=== PATIENT | male | born 1945 | race Caucasian/White ===

== ENCOUNTER 2019-01-18 23:25 | Inpatient (IN) | payer MEDICARE, OTHER ==
[~2019-01-18] VITALS: Ht 177.8 cm; Wt 88.5 kg
--- NOTE | 2019-01-18 23:30 | NUR ---
ED Nurse Note: Pt walked in c/o loss of appitate since 01/14 with n/v/d. Mid abd pain, 5/10 pain. Per son, pt has been heavy drinking for the past month. Stopped 01/16. patient is alert and oriented x4, ambulatory with a steady gait, VSS. patient presents with a busted front lip howeve has no recollection on when or how it happened, will wait for further orders
--- NOTE | 2019-01-18 23:56 | Emergency Room Report ---
History of Present Illness General Chief Complaint: Nausea, Vomiting, and Diarrhea Source: Family Member Present Illness HPI Patient presents unable to keep anything down with nausea and vomiting. He also has a slight amount of abdominal discomfort. He feels heaviness in his legs 2 days ago when he was trying to move about. He is been weak. He drinks alcohol daily and is been many years since he was last sober. Progressively deteriorated over the last 2 months. Denies any melena or hematochezia. Easy bruising. 3 months ago the patient was able to assist with coaching his grandchildren's a little leak. Now he is unable to throw ball he has a weakness. The son says the right eye is chronically red. He has a lesion on his upper lip that is been there for months. This is not been evaluated. The patient has chronic lymphocytic leukemia. He states he has not had follow- up for several years. Allergies: Coded Allergies: No Known Allergies (Unverified , 01/18/19) Patient History Past Medical History: see triage record Past Surgical History: other - Hip replacements Social History: Reports: alcohol use; Denies: smoking Social History Narrative Brought by son Reviewed Nursing Documentation: PMH: Agreed; PSxH: Agreed Review of Systems All Other Systems: negative except mentioned in HPI Physical Exam Vital Signs Date Time Temp Pulse Resp B/P (MAP) Pulse Ox O2 Delivery O2 Flow Rate FiO2 01/18/19 23:30 98.1 89 18 147/84 (105) 94 Room Air Sp02 EP Interpretation: reviewed, abnormal - Interpreted as slightly low by me General Appearance: alert, Chronically Ill Head: normocephalic, atraumatic Eyes: right eye Scleral Injection; bilateral eye EOMI ENT: dry mucus membranes, other - Lesion upper lip Neck: supple, no bony tend Respiratory: chest non-tender, lungs clear, other - Occasional rhonchorous cough Cardiovascular #1: normal peripheral pulses, tachycardia Cardiovascular #2: 2+ radial (R) Gastrointestinal: normal bowel sounds, non tender, soft, no mass Genitourinary: no CVA tenderness Musculoskeletal: back normal, digits/nails normal Neurologic: alert, motor strength/tone normal, DTRs symmetric, sensory intact, cerebellar normal, oriented - X2 Psychiatric: mood/affect normal, no suicidal/homicidal ideation, no delusions Skin: Ecchymosis/Bruising - Forearms Medical Decision Making Diagnostic Impression: Primary Impression: Intractable vomiting Qualified Codes: R11.2 - Nausea with vomiting, unspecified Additional Impressions: Alcohol withdrawal Qualified Codes: F10.239 - Alcohol dependence with withdrawal, unspecified Chronic lymphocytic leukemia Suspicious upper lip lesion for neoplastic process ER Course Patient presents with vomiting and weakness with a history of alcohol abuse. Differential includes acute myocardial infarction, occult infection, small bowel obstruction, gastritis, gastroenteritis, diverticulitis, UTI amongst others. Evaluation will be with EKG, chest x-ray, abdominal films and labs. The patient will be treated with IV hydration, thiamine, Pepcid and Zofran. EKG with sinus tachycardia and PACs with LVH and nonspecific ST-T wave changes. Chest x-ray no infiltrates. Abdomen increased stool load and evidence of hip surgeries without obstruction. Labs with markedly elevated white count consistent with CLL. Platelet count normal. INR normal. Elevated BUN. Patient somewhat improved but still weak. Difficulty tolerating oral intake at this time. Risk of severe withdrawal from alcohol. Also with leukocytosis needs further evaluation. Admit telemetry Dr. Mcneil. Laboratory Tests Test 01/18/19 23:55 01/19/19 00:00 Urine Color Yellow Urine Appearance Clear Urine pH 5 (4.5-8.0) Urine Specific [place] 1.020 (1.005-1.035) Urine Protein 1+ (NEGATIVE) H Urine Glucose (UA) Negative (NEGATIVE) Urine Ketones 1+ (NEGATIVE) H Urine Blood 1+ (NEGATIVE) H Urine Nitrite Negative (NEGATIVE) Urine Bilirubin Negative (NEGATIVE) Urine Urobilinogen 1 MG/DL (0.0-1.0) H Urine Leukocyte Esterase 1+ (NEGATIVE) H Urine RBC 0-2 /HPF (0 - 0) H Urine WBC 0-2 /HPF (0 - 0) Urine Squamous Epithelial Cells None /LPF (NONE/OCC) Urine Bacteria Few /HPF (NONE) Urine Opiates Screen Negative (NEGATIVE) Urine Barbiturates Screen Negative (NEGATIVE) Phencyclidine (PCP) Screen Negative (NEGATIVE) Urine Amphetamines Screen Negative (NEGATIVE) Urine Benzodiazepines Screen Negative (NEGATIVE) Urine Cocaine Screen Negative (NEGATIVE) Urine Marijuana (THC) Screen Negative (NEGATIVE) White Blood Count 169.2 K/UL (4.8-10.8) *H Red Blood Count 3.33 M/UL (4.70-6.10) L Hemoglobin 11.6 G/DL (14.2-18.0) L Hematocrit 33.9 % (42.0-52.0) L Mean Corpuscular Volume 102 FL (80-99) H Mean Corpuscular Hemoglobin 34.7 PG (27.0-31.0) H Mean Corpuscular Hemoglobin Concent 34.0 G/DL (32.0-36.0) Red Cell Distribution Width 14.1 % (11.6-14.8) Platelet Count 188 K/UL (150-450) Mean Platelet Volume 6.3 FL (6.5-10.1) L Neutrophils (%) (Auto) % (45.0-75.0) Lymphocytes (%) (Auto) % (20.0-45.0) Monocytes (%) (Auto) % (1.0-10.0) Eosinophils (%) (Auto) % (0.0-3.0) Basophils (%) (Auto) % (0.0-2.0) Neutrophils % (Manual) Pending Lymphocytes % (Manual) Pending Platelet Estimate Pending Platelet Morphology Pending Prothrombin Time 10.2 SEC (9.30-11.50) Prothrombin Time INR 1.0 (0.9-1.1) PTT 28 SEC (23-33) Sodium Level 136 MMOL/L (136-145) Potassium Level 3.5 MMOL/L (3.5-5.1) Chloride Level 99 MMOL/L (98-107) Carbon Dioxide Level 25 MMOL/L (21-32) Anion Gap 12 mmol/L (5-15) Blood Urea Nitrogen 19 mg/dL (7-18) H Creatinine 1.3 MG/DL (0.55-1.30) Estimate Glomerular Filtration Rate mL/min (>60) Glucose Level 132 MG/DL (74-106) H Calcium Level 8.9 MG/DL (8.5-10.1) Phosphorus Level 3.1 MG/DL (2.5-4.9) Magnesium Level 2.1 MG/DL (1.8-2.4) Total Bilirubin 1.6 MG/DL (0.2-1.0) H Direct Bilirubin 0.4 MG/DL (0.0-0.3) H Aspartate Amino Transferase (AST) 27 U/L (15-37) Alanine Aminotransferase (ALT) 42 U/L (12-78) Alkaline Phosphatase 127 U/L (46-116) H Total Creatine Kinase 40 U/L (26-308) Troponin I 0.000 ng/mL (0.000-0.056) Total Protein 6.6 G/DL (6.4-8.2) Albumin 3.7 G/DL (3.4-5.0) Globulin 2.9 g/dL Albumin/Globulin Ratio 1.3 (1.0-2.7) Lipase 144 U/L (73-393) Salicylates Level 1.8 ug/mL (2.8-20) L Acetaminophen Level < 2 MCG/ML (10-30) L Serum Alcohol < 3 mg/dL Rhythm Strip Diag. Results EP Interpretation: yes Rhythm: NSR, no PVC's, no ectopy Chest X-Ray Diagnostic Results Chest X-Ray Diagnostic Results : Chest X-Ray Ordered: Yes # of Views/Limited/Complete: 1 View Indication: Other EP Interpretation: Yes Interpretation: no consolidation, no effusion, no pneumothorax Impression: No acute disease Electronically Signed by: Electronically signed by Ernesto Moore MD Other X-Ray Diagnostic Results Other X-Ray Diagnostic Results : X-Ray ordered: Abdomen # of Views/Limited Vs Complete: 1 View Indication: Other EP Interpretation: Yes Interpretation: nonspecific bowel gas, no sbo, other - No masses Impression: No acute disease Electronically Signed by: Electronically signed by Ernesto Moore MD Last Vital Signs Date Time Temp Pulse Resp B/P (MAP) Pulse Ox O2 Delivery O2 Flow Rate FiO2 01/19/19 04:00 99.9 73 20 114/70 (85) 97 01/19/19 03:04 Room Air Status: improved Disposition: ADMITTED INPATIENT Condition: Serious Ernesto Moore MD Jan 18, 2019 23:56
[2019-01-19] VITALS (7 sets, daily range): BP systolic 114–140; BP diastolic 58–93
[2019-01-19] MEDS ORDERED: Thiamine HCl 100 MG in D5W 55 ML IV ONE ×2
--- NOTE | 2019-01-19 00:13 | NUR ---
ED Nurse Note: Patient complains of no pain at this time, will wait for further orders
[2019-01-19 00:32] LABS: HEMATOCRIT 33.9 % (42.0-52.0); HEMOGLOBIN 11.6 G/DL (14.2-18.0); MEAN CORPUSCULAR VOLUME 102 FL (80-99); PLATELET COUNT 188 K/UL (150-450); RED BLOOD COUNT 3.33 M/UL (4.70-6.10); RED CELL DISTRIBUTION WIDTH 14.1 % (11.6-14.8)
[2019-01-19 00:49] LABS: PHOSPHORUS 3.1 MG/DL (2.5-4.9); WHITE BLOOD COUNT 169.2 K/UL (4.8-10.8)
[2019-01-19 01:03] LABS: ANION GAP 12 mmol/L (5-15); BLOOD UREA NITROGEN 19 mg/dL (7-18); CALCIUM 8.9 MG/DL (8.5-10.1); CARBON DIOXIDE 25 MMOL/L (21-32); CHLORIDE 99 MMOL/L (98-107); CREATININE 1.3 MG/DL (0.55-1.30); POTASSIUM 3.5 MMOL/L (3.5-5.1); SODIUM 136 MMOL/L (136-145)
[2019-01-19 01:14] LABS: ALANINE AMINOTRANSFERASE 42 U/L (12-78); ALBUMIN 3.7 G/DL (3.4-5.0); ALBUMIN/GLOBULIN RATIO 1.3 (1.0-2.7); ALKALINE PHOSPHATASE 127 U/L (46-116); ASPARTATE AMINO TRANSFERASE 27 U/L (15-37); BILIRUBIN,TOTAL 1.6 MG/DL (0.2-1.0); CREATINE KINASE 40 U/L (26-308)
[2019-01-19 01:26] LABS: BILIRUBIN,DIRECT 0.4 MG/DL (0.0-0.3)
[2019-01-19 01:36] LABS: APPEARANCE,URINE CLEAR; BILIRUBIN, URINE NEGATIVE (NEGATIVE); GLUCOSE, URINE (UA) NEGATIVE (NEGATIVE); KETONES,URINE 1+ (NEGATIVE); LEUKOCYTE ESTERASE ,URINE 1+ (NEGATIVE); NITRITE,URINE NEGATIVE (NEGATIVE); PH,URINE 5 (4.5-8.0); PROTEIN,URINE 1+ (NEGATIVE); UROBILINOGEN,URINE 1 MG/DL (0.0-1.0)
[2019-01-19 01:54] LABS: COLOR,URINE YELLOW
[2019-01-19] MEDS ORDERED: Morphine Sulfate 2mg/ml Inj(IV/IM USE ONLY) IVP PRN (02:15)
--- NOTE | 2019-01-19 02:15 | NUR ---
TRANSFER TO FLOOR: Patient transferred to Telemetry as ordered, per Dr. Gillis. Report given to HANNAH Alamo
--- NOTE | 2019-01-19 02:30 | NUR ---
NURSE NOTES: Received report from HANNAH Jarrell ED. Patient was transferred from ED to Telemetry unit via gurney without any incident. Patient is awake, A/O x4, lying in semi wright's; denies pain at this time. No signs of acute cardiorespiratory distress noted. Checked IV site and flushed with ongoing IV NS 1L @300cc/hr. Patient was placed on tele box SR on the monitor, 80s. Body assessment done with no skin issues. Bed at lowest position, brakes on, siderails x2. Call light within reach. Will continue to monitor. Addendum: 01/19/19 at 0755 by Cally Calderon RN Body assessment done. Lesion noted at the upper lip. Multiple bruises noted at bilateral upper extremities.
[2019-01-19] MEDS: D5 1/2NS 1,000 ML IV SCH ×3 (03:23→23:06)
[2019-01-19] MEDS: Zolpidem 5mg tab ORAL PRN ×2 (03:24→21:20)
--- NOTE | 2019-01-19 04:30 | NUR ---
NURSE NOTES: Resting throughout the night. No significant change of condition. Will continue to monitor.
--- NOTE | 2019-01-19 07:40 | NUR ---
NURSE NOTES: Report received from HANNAH Alamo. Pt. AOx4. In RA. Denies any pain or SOB. R AC IV running D5 1/2 NS @ 100, site intact. Bed on lowest position, side rails upx2, brakes engaged, call light within easy reach.
--- NOTE | 2019-01-19 07:55 | NUR ---
HAND-OFF: Report given to HANNAH Mack. Patient is in stable condition. Plan of care endorsed.
--- NOTE | 2019-01-19 08:30 | History and Physical Report ---
DATE OF ADMISSION: 01/19/2019 REASON FOR ADMISSION: Nausea and vomiting. HISTORY OF PRESENT ILLNESS: The patient is a extremely pleasant 73-year-old gentleman admitted overnight for evaluation and care of nausea and vomiting. No diarrhea. No chest pain. No shortness of breath. Denies any changes in bowel color or consistency. The patient does drink approximately 6 to 7 bottles of Chardonnay a day. He says there are the smaller size Chardonnay bottles of wine. Denies any vodka. Denies any other alcohol consumption. He is being treated by an oncologist in [facility] for CLL. ALLERGIES: No known drug allergies. PAST MEDICAL HISTORY: 1. CLL. 2. Alcohol dependency. SOCIAL HISTORY: Positive for heavy alcohol consumption. No tobacco or illicit drug use. PAST SURGICAL HISTORY: Hip replacements. REVIEW OF SYSTEMS: NEUROLOGIC: The patient denies headache, change in vision, syncope, or presyncopal episodes. CARDIOVASCULAR: No current chest pain, palpitations, or angina. PULMONARY: No difficulty breathing, productive cough, sputum. GASTROINTESTINAL/GENITOURINARY: The patient is having nausea and vomiting but no diarrhea. ENDOCRINOLOGY: No night sweats, fevers, or chills. MUSCULOSKELETAL: The patient is feeling weak, tired, and fatigue LABORATORY AND DIAGNOSTIC DATA: Labs dated January 19, 2019, sodium 136, potassium 3.5, creatinine 1.3. Troponin 0. Lipase 144. Albumin 3.7. White cell count , hemoglobin 11.6, and platelet count 188. PHYSICAL EXAMINATION: VITAL SIGNS: Blood pressure 114/70, respiratory rate 20, pulse 73, temperature 99.9, 97% oxygen saturation room air. GENERAL: The patient awake, alert, not in distress. HEENT: Extraocular muscles intact. NECK: No lymphadenopathy noted. CARDIOVASCULAR: S1 and S2. No rubs or gallops. PULMONARY: Clear to auscultation bilaterally. No rales, rhonchi, or wheezes. ABDOMEN: Nondistended and nontender. EXTREMITIES: No edema noted. ASSESSMENT AND PLAN: 1. Nausea and vomiting secondary to heavy alcohol consumption. We will aggressively hydrate the patient. Consult Gastroenterology for other etiologies. Anticipate discharge tomorrow once the patient tolerating p.o. The patient agreed to initiate alcohol abstinence. 2. CLL. The patient to follow up with his oncologist in [facility] post discharge. 3. DVT prophylaxis with Lovenox. 4. GI prophylaxis with famotidine. 5. Dehydration. We will continue IV fluids. Ozzy Gillis MD DR: Joanie JOB#: [id number] CC:
[2019-01-19] MEDS: Heparin 5000 units/ml inj SUBQ SCH ×3 (09:00→20:57)
[2019-01-19] MEDS ORDERED: Enoxaparin 40mg Inj SUBQ SCH (09:00)
[2019-01-19] MEDS: Thiamine 100mg tab ORAL SCH (09:22)
--- NOTE | 2019-01-19 10:32 | NUR ---
*-* INSURANCE *-* ALL AVAILABLE CLINICALS HAVE BEEN FAXED TO: [facility] #[phone] FAX#[phone] REVIEWS/CLINICALS Addendum: 01/19/19 at 1353 by ANDI CERDA [facility]: [place] Wang; [phone] F: [phone] REF# [id number]
--- NOTE | 2019-01-19 10:50 | Diagnostic Imaging Report ---
Indication: Abdominal pain Comparison: None Single view of the abdomen obtained Findings: There are dilated loops of small bowel and probable large bowel as well. Recommend follow-up. Consider CT if warranted clinically. Current study is obtained is limited. IMPRESSION: Mild distention of small bowel and probable large bowel distention as well. Consider CT if warranted clinically.
--- NOTE | 2019-01-19 10:50 | Diagnostic Imaging Report ---
Indication: Dyspnea Comparison: None A single view chest radiograph was obtained. Findings: No definite infiltrate or pulmonary vascular congestion identified. There is a questionable nodular density projected over the right upper lobe. Suggest repeat chest x-ray with PA and lateral views upon follow-up. Consider CT. The heart is enlarged. The aorta is mildly enlarged consistent with atherosclerotic vascular disease. The bones are osteopenic. Impression: Question of a right upper lobe nodule. This could be artifactual but suggest follow-up or CT for clarification.
--- NOTE | 2019-01-19 16:26 | NUR ---
TRANSFER UPDATE PATIENT IS OUT OF NETWORK AND NEEDS TO TRANSFER TO IN NETWORK HOSPITAL. EITHER [facility] OR [facility] [employer] DISCUSSED ABOVE WITH DR DELACRUZ WHO STATED PATIENT IS STABLE FOR TRANSFER [employer] PROVIDED HEALTH PLAN WITH NURSES STATION NUMBER FOR TRANSFER UPDATE
--- NOTE | 2019-01-19 18:09 | Cardiology Report ---
APPROVED REPORT EKG Measurement Heart [id number] 184P [id number] Sinus tachycardia with premature atrial complexes Moderate voltage criteria for LVH, may be normal variant Borderline ECG
--- NOTE | 2019-01-19 19:51 | NUR ---
HAND-OFF: Report given to HANNAH Champagne. Pt. in stable condition. Plan of care endorsed.
--- NOTE | 2019-01-19 19:53 | NUR ---
NURSE NOTES: Recvd pt. Pt is sleeping in bed comfortably with no sign of sob or resp distress. Bed in lowest position, bed alarm is on, will continue with plan of care
--- NOTE | 2019-01-19 21:52 | General Progress Note ---
Assessment/Plan Assessment/Plan: Assessment - N/V - possible UGIB- CLL Recommendations - monitor labs - change anticoagulation - EGD later this week Subjective Allergies: Coded Allergies: No Known Allergies (Unverified , 01/18/19) Objective Last 24 Hour Vital Signs Date Time Temp Pulse Resp B/P (MAP) Pulse Ox O2 Delivery O2 Flow Rate FiO2 01/19/19 20:22 Room Air 01/19/19 20:00 98.2 70 22 127/58 (81) 97 01/19/19 20:00 82 01/19/19 16:00 98.6 76 20 140/64 (89) 95 01/19/19 16:00 81 01/19/19 12:00 77 01/19/19 12:00 98.6 75 18 117/65 (82) 95 01/19/19 09:00 Room Air 01/19/19 08:00 98.2 93 20 134/80 (98) 96 01/19/19 08:00 73 01/19/19 04:00 82 01/19/19 04:00 99.9 73 20 114/70 (85) 97 01/19/19 03:04 Room Air 01/19/19 03:00 80 01/19/19 02:30 80 01/19/19 02:30 97.9 74 20 134/70 (91) 96 01/19/19 02:15 98.1 69 18 135/93 94 Room Air 01/19/19 01:23 98.1 73 18 135/93 94 Room Air 01/18/19 23:30 98.1 89 18 147/84 (105) 94 Room Air Intake and Output 01/18/19 01/19/19 18:59 06:59 Intake Total 1292 ml Balance 1292 ml Intake Oral 30 ml IV Total 1262 ml # Voids 2 Laboratory Tests 01/18/19 23:55: Urine Color Yellow, Urine Appearance Clear, Urine pH 5, Urine Specific [place] 1.020, Urine Protein 1+H, Urine Glucose (UA) Negative, Urine Ketones 1+H, Urine Blood 1+H, Urine Nitrite Negative, Urine Bilirubin Negative, Urine Urobilinogen 1H, Urine Leukocyte Esterase 1+H, Urine RBC 0-2H, Urine WBC 0-2, Urine Squamous Epithelial Cells None, Urine Bacteria Few, Urine Opiates Screen Negative, Urine Barbiturates Screen Negative, Phencyclidine (PCP) Screen Negative, Urine Amphetamines Screen Negative, Urine Benzodiazepines Screen Negative, Urine Cocaine Screen Negative, Urine Marijuana (THC) Screen Negative 01/19/19 00:00: White Blood Count 169.2*H, Red Blood Count 3.33L, Hemoglobin 11.6L, Hematocrit 33.9L, Mean Corpuscular Volume 102H, Mean Corpuscular Hemoglobin 34.7H, Mean Corpuscular Hemoglobin Concent 34.0, Red Cell Distribution Width 14.1, Platelet Count 188, Mean Platelet Volume 6.3L, Neutrophils (%) (Auto) , Lymphocytes (%) ( Auto) , Monocytes (%) (Auto) , Eosinophils (%) (Auto) , Basophils (%) (Auto) , Differential Total Cells Counted 100, Neutrophils % (Manual) 3L, Lymphocytes % ( Manual) 90H, Monocytes % (Manual) 6, Eosinophils % (Manual) 0, Basophils % ( Manual) 0, Band Neutrophils 1, Other Cell Type See comments, Platelet Estimate Adequate, Platelet Morphology Normal, Prothrombin Time 10.2, Prothromb Time International Ratio 1.0, Activated Partial Thromboplast Time 28, Sodium Level 136, Potassium Level 3.5, Chloride Level 99, Carbon Dioxide Level 25, Anion Gap 12, Blood Urea Nitrogen 19H, Creatinine 1.3, Estimat Glomerular Filtration Rate , Glucose Level 132H, Calcium Level 8.9, Phosphorus Level 3.1, Magnesium Level 2.1, Total Bilirubin 1.6H, Direct Bilirubin 0.4H, Aspartate Amino Transf (AST/ SGOT) 27, Alanine Aminotransferase (ALT/SGPT) 42, Alkaline Phosphatase 127H, Total Creatine Kinase 40, Troponin I 0.000, Total Protein 6.6, Albumin 3.7, Globulin 2.9, Albumin/Globulin Ratio 1.3, Lipase 144, Salicylates Level 1.8L, Acetaminophen Level < 2L, Serum Alcohol < 3 Height (Feet): 5 Height (Inches): 10.00 Weight (Pounds): 180 Scott Addison MD Jan 19, 2019 21:52
[2019-01-20] VITALS: BP 111/55
--- NOTE | 2019-01-20 03:00 | Consultation ---
DATE OF CONSULTATION: 01/19/2019 GASTROENTEROLOGY CONSULTATION CONSULTING PHYSICIAN: Scott Addison M.D. CHIEF COMPLAINT: I was asked to see this patient by Dr. Ozzy Gillis, for evaluation of gastrointestinal symptoms. HISTORY OF PRESENT ILLNESS: The patient is a pleasant 73-year-old white man with a history of chronic lymphocytic leukemia who comes in to the hospital with a three-day history of nausea, vomiting, and diarrhea. The patient states that he has been having vomiting for the past three days and he thinks some of the emesis may have had red-colored material within it. His bowel movements are brown and there is no melena. He had a colonoscopy about eight years ago, but cannot recall if he has ever had an endoscopy. He is a heavy consumer of alcohol. He told me he drinks about 1-1/2 bottles of a wine a day for the past five years or so. PAST MEDICAL HISTORY: 1. History of chronic lymphocytic leukemia for about nine years. 2. Alcohol dependence. FAMILY HISTORY: Positive for pancreatic cancer. MEDICATIONS: Outpatient medications none. SOCIAL HISTORY: The patient was single and he has three grown children. He does not smoke, but he does drink daily as described above. REVIEW OF SYSTEMS: Otherwise negative. PHYSICAL EXAMINATION: GENERAL: A pleasant white man, seen in his room HEENT: Normocephalic and atraumatic. Sclerae anicteric. Oropharynx clear. NECK: Supple. CHEST: Clear to auscultation. CARDIOVASCULAR: Revealed a regular rate. ABDOMEN: Soft with good bowel sounds. There is no tenderness. EXTREMITIES: Revealed no edema. LABORATORY DATA: Noted. ASSESSMENT: This patient presents with a three-day episode of nausea and vomiting and some loose stools, but his symptoms are rapidly resolving. This morning he ate solid breakfast and he has not had any vomiting. As such it could be gastroenteritis which is resolving. He did report some red-colored emesis and therefore causes of upper gastrointestinal bleeding can be considered. This may however be simply due to alcoholic gastritis and strongly advised the patient to discontinue drinking. In the meantime, patient will be given proton pump inhibitor and will be scheduled for endoscopy in the next day or two. The patient's stool should also be checked for typical pathogens. RECOMMENDATIONS: Per above discussion and per orders in the chart. Thank you for asking me to participate in the care of this patient. Scott Addison M.D. DR: NAYE JOB#: [id number] CC: GEGE
[2019-01-20 04:00] VITALS: BP 115/59
[2019-01-20 07:12] LABS: ANION GAP 5 mmol/L (5-15); BLOOD UREA NITROGEN 12 mg/dL (7-18); CALCIUM 8.4 MG/DL (8.5-10.1); CARBON DIOXIDE 28 MMOL/L (21-32); CHLORIDE 106 MMOL/L (98-107); POTASSIUM 3.8 MMOL/L (3.5-5.1); SODIUM 139 MMOL/L (136-145)
[2019-01-20 07:17] LABS: HEMOGLOBIN 9.4 G/DL (14.2-18.0); MEAN CORPUSCULAR VOLUME 103 FL (80-99); PLATELET COUNT 151 K/UL (150-450); RED BLOOD COUNT 2.72 M/UL (4.70-6.10); RED CELL DISTRIBUTION WIDTH 14.6 % (11.6-14.8)
[2019-01-20 08:00] VITALS: BP_SYST 110; BP_SYST 132; BP_DIAS 61; BP_DIAS 76
[2019-01-20] MEDS: Heparin 5000 units/ml inj SUBQ SCH ×2 (09:00→21:00)
--- NOTE | 2019-01-20 09:13 | Nephrology Progress Note ---
Assessment/Plan Assessment/Plan: 1. Nausea and vomiting secondary to heavy alcohol consumption/gastritis. - resolved - appreciate GI - DC today if cleared by GI 2. CLL. The patient to follow up with his oncologist in [facility] post discharge. 3. Dehydration- resolved Subjective Date patient seen: Jan 20, 2019 Time patient seen: 09:11 ROS Limited/Unobtainable: No Allergies: Coded Allergies: No Known Allergies (Unverified , 01/18/19) Subjective Patint feeling better. N/V and D resolved Objective Last 24 Hour Vital Signs Date Time Temp Pulse Resp B/P (MAP) Pulse Ox O2 Delivery O2 Flow Rate FiO2 01/20/19 04:00 97.9 62 19 115/59 (77) 99 01/20/19 04:00 67 01/20/19 00:00 98.3 65 18 111/55 (73) 100 01/20/19 00:00 61 01/19/19 20:22 Room Air 01/19/19 20:00 98.2 70 22 127/58 (81) 97 01/19/19 20:00 82 01/19/19 16:00 98.6 76 20 140/64 (89) 95 01/19/19 16:00 81 01/19/19 12:00 77 01/19/19 12:00 98.6 75 18 117/65 (82) 95 Intake and Output 01/19/19 01/20/19 19:00 07:00 Intake Total 360 ml 120 ml Balance 360 ml 120 ml Intake Oral 360 ml 120 ml # Voids 3 3 # Bowel Movements 1 Laboratory Tests 01/20/19 06:05: White Blood Count 108.0*H, Red Blood Count 2.72L, Hemoglobin 9.4L, Hematocrit 28.0L, Mean Corpuscular Volume 103H, Mean Corpuscular Hemoglobin 34.6H, Mean Corpuscular Hemoglobin Concent 33.5, Red Cell Distribution Width 14.6, Platelet Count 151, Mean Platelet Volume 6.8, Neutrophils (%) (Auto) , Lymphocytes (%) ( Auto) , Monocytes (%) (Auto) , Eosinophils (%) (Auto) , Basophils (%) (Auto) , Differential Total Cells Counted 100, Neutrophils % (Manual) 3L, Lymphocytes % ( Manual) 97H, Monocytes % (Manual) 0L, Eosinophils % (Manual) 0, Basophils % ( Manual) 0, Band Neutrophils 0, Smudge Cells 2+, Platelet Estimate Adequate, Platelet Morphology Normal, Macrocytosis 1+, Sodium Level 139, Potassium Level 3.8, Chloride Level 106, Carbon Dioxide Level 28, Anion Gap 5, Blood Urea Nitrogen 12, Creatinine 1.0, Estimat Glomerular Filtration Rate , Glucose Level 123H, Calcium Level 8.4L Height (Feet): 5 Height (Inches): 10.00 Weight (Pounds): 195 General Appearance: no apparent distress EENT: normal ENT inspection Neck: normal alignment Cardiovascular: normal rate, regular rhythm Respiratory/Chest: lungs clear, normal breath sounds Abdomen: non tender, soft Edema: no edema noted Arm (L), no edema noted Arm (R), no edema noted Leg (L), no edema noted Leg (R), no edema noted Pedal (L), no edema noted Pedal (R), no edema noted Generalized Ozzy Gillis MD Jan 20, 2019 09:13
--- NOTE | 2019-01-20 09:14 | Discharge Instructions ---
Discharge Instructions Discharge Instructions Services at Discharge: day care Resume Normal Activity?: Yes Activity: light activity Follow Up Orders 1) Follow up with his Oncologist 2) Follow up PCP 1 week For Congestive Heart Failure Reminder Report to your physician any weight gain of 5 pounds or more in one week. Ozzy Gillis MD Jan 20, 2019 09:14
[2019-01-20] MEDS: Thiamine 100mg tab ORAL SCH (09:57)
--- NOTE | 2019-01-20 11:13 | NUR ---
CASE MANAGEMENT:REVIEW 73 YR OLD MALE PRESENTED TO ER CC: LOSS OF APPETITE. N/V/D PMH: CHRONIC LYMPHOCYTIC LEUKEMIA SI: INTRACTABLE VOMITING. ALCOHOL WITHDRAWAL 98.0 89 18 147/84 94% ON RA WBC+169.2 H/H-11.6/33.9 TBILI+1.6 DBILI+0.4 IS: IV THIAMINE 1L NS BOLUS IV PEPCID IV ZOFRAN ABDOMINAL XRAY CHEST XRAY : TO TELEMETRY UNIT 01/20/19 SI: NAUSEA. VOMITING. DEHYDRATION. CLL. 97.9 62 19 115/59 99% ON RA WBC+108.0 H/H-9.4/28.0 GLUCOSE+123 IS: PROTONIX PO QD THIAMINE PO QD FOLATE PO QD HEPARIN SQ Q12 : TELEMETRY STATUS PLAN: SCHEDULED FOR EGD TOMORROW @ 11 AM SPOKE WITH [facility] T: [phone] WHO GAVE AUTHORIZATION FOR CONTINUED STAY THRU TOMORROW AND FOR EGD
--- NOTE | 2019-01-20 11:33 | NUR ---
TRANSFER UPDATE SPOKE WITH LEARNING TECHNOLOGIES SPECIALIST, LOBITO, FROM [facility] PER AL PATIENT CAN REMAIN AT [facility] THRU TOMORROW FOR SCHEDULED EGD EGD SCHEDULED FOR 01/21/[address] MACARIO
[2019-01-20 12:00] VITALS: BP 132/76
--- NOTE | 2019-01-20 13:14 | NUR ---
NURSE NOTES: Pt. complained of not feeling well. "I'm not myself, I feel very weak and tired......" made aware.
[2019-01-20] MEDS: D5NS 1,000 ML IV SCH (13:41)
[2019-01-20] MEDS: chlordiazePOXIDE 25mg Cap ORAL SCH ×2 (13:41→22:18)
[2019-01-20] MEDS ORDERED: LORazepam Inj 2mg/ml 1ml IV PRN (13:45)
--- NOTE | 2019-01-20 14:02 | NUR ---
NURSE NOTES: Jojo, Admission coordinator from [facility] called to get primary report. Will call back after a bed is assigned for Patient.
--- NOTE | 2019-01-20 14:29 | NUR ---
TRANSFER UPDATE NEW PLAN IS TO TRANSFER TO CONTRACTED FACILITY WAITING FOR ASSIGNED ROOM NUMBER AND AMBULANCE INFORMATION
--- NOTE | 2019-01-20 15:03 | NUR ---
TRANSFER UPDATE PATIENT HAS BEEN ACCEPTED AT [facility] UNDER THE CARE OF DR EL MARROQUIN WAITING FOR ROOM ASSIGNMENT, TELEPHONE NUMBER AND AMBULANCE INFORMATION
[2019-01-20 16:00] VITALS: BP 130/60
--- NOTE | 2019-01-20 16:50 | NUR ---
*-* INSURANCE *-* ALL AVAILABLE CLINICALS HAVE BEEN FAXED TO: THERESA POZO: LOBITO GAXIOLA P; [phone] F: [phone] REF# [id number] & [facility] - responsible for auth Ref#[id number] No Knot Tier assigned yet
--- NOTE | 2019-01-20 19:40 | NUR ---
HAND-OFF: Report given to HANNAH Nieto. Patient sitting at bedside. AOx4. Plan of care endorsed.
--- NOTE | 2019-01-20 19:50 | NUR ---
NURSE NOTES: Received report from HANNAH Mack. Patient sitting in chair showing no signs of acute distress. AOx3. Respiration even and non labored on room air. No sob noted. IV on right hand 22g running D5NS@75cc/hr patent and intact. Call button within reach. All needs attended and met. Will continue plan of care.
--- NOTE | 2019-01-20 19:59 | General Progress Note ---
Assessment/Plan Assessment/Plan: Assessment - N/V - Upper GI Bleed - CLL Recommendations - monitor labs - change anticoagulation - EGD in am Subjective Allergies: Coded Allergies: No Known Allergies (Unverified , 01/18/19) Subjective Feels well no further vomiting advised he is scheduled for EGD in am transfer plans noted Objective Last 24 Hour Vital Signs Date Time Temp Pulse Resp B/P (MAP) Pulse Ox O2 Delivery O2 Flow Rate FiO2 01/20/19 16:00 71 01/20/19 16:00 98.8 76 20 130/60 (83) 95 01/20/19 12:00 98.4 64 20 132/76 (94) 95 01/20/19 12:00 70 01/20/19 09:00 Room Air 01/20/19 08:00 98.4 87 20 110/61 (77) 95 01/20/19 08:00 71 01/20/19 04:00 97.9 62 19 115/59 (77) 99 01/20/19 04:00 67 01/20/19 00:00 98.3 65 18 111/55 (73) 100 01/20/19 00:00 61 01/19/19 20:22 Room Air 01/19/19 20:00 98.2 70 22 127/58 (81) 97 01/19/19 20:00 82 Intake and Output 01/19/19 01/20/19 19:00 07:00 Intake Total 360 ml 120 ml Balance 360 ml 120 ml Intake Oral 360 ml 120 ml # Voids 3 3 # Bowel Movements 1 Laboratory Tests 01/20/19 06:05: White Blood Count 108.0*H, Red Blood Count 2.72L, Hemoglobin 9.4L, Hematocrit 28.0L, Mean Corpuscular Volume 103H, Mean Corpuscular Hemoglobin 34.6H, Mean Corpuscular Hemoglobin Concent 33.5, Red Cell Distribution Width 14.6, Platelet Count 151, Mean Platelet Volume 6.8, Neutrophils (%) (Auto) , Lymphocytes (%) ( Auto) , Monocytes (%) (Auto) , Eosinophils (%) (Auto) , Basophils (%) (Auto) , Differential Total Cells Counted 100, Neutrophils % (Manual) 3L, Lymphocytes % ( Manual) 97H, Monocytes % (Manual) 0L, Eosinophils % (Manual) 0, Basophils % ( Manual) 0, Band Neutrophils 0, Smudge Cells 2+, Platelet Estimate Adequate, Platelet Morphology Normal, Macrocytosis 1+, Sodium Level 139, Potassium Level 3.8, Chloride Level 106, Carbon Dioxide Level 28, Anion Gap 5, Blood Urea Nitrogen 12, Creatinine 1.0, Estimat Glomerular Filtration Rate , Glucose Level 123H, Calcium Level 8.4L Height (Feet): 5 Height (Inches): 10.00 Weight (Pounds): 195 Objective WDWN NCAT supple CTA RRR abd soft no edema Scott Addison MD Jan 20, 2019 19:59
[2019-01-20 20:00] VITALS: BP 132/60
--- NOTE | 2019-01-20 20:38 | NUR ---
NURSE NOTES: MD made aware of family's concern regarding Pt's condition.
--- NOTE | 2019-01-20 21:30 | NUR ---
NURSE NOTES: Spoke with Son and refused to do EGD because its not within their insurance network. Spoke with Dr. Addison about son's decision and concerns. EGD procedure cancelled per. Dr. Hawkins. noted and carried out.
[2019-01-21] VITALS: BP 149/91
[2019-01-21] MEDS: D5NS 1,000 ML IV SCH (03:36)
[2019-01-21 04:00] VITALS: BP 127/58
[2019-01-21] MEDS: chlordiazePOXIDE 25mg Cap ORAL SCH (06:07)
--- NOTE | 2019-01-21 07:28 | NUR ---
HAND-OFF: Report given to AHNNAH Villalobos. Addendum: 01/21/19 at 0730 by BHARAT SANTOS RN HAND-OFF: Report given to HANNAH Hobbs.
--- NOTE | 2019-01-21 07:44 | NUR ---
NURSE NOTES: received report from Declan Nieto. Pt sleeping in bed. No distress noted. Bed is in lowest position, side rails up X2, and call light is within reach. Call received from pts son requesting we do not use ambulance service as insurance will not pay. They state that they will come and last picker patient and drive him to hospital. Son also request that manager of case management call him to check on the status. Left message for [place] regarding the request to have her call them and to not use an ambulance.
[2019-01-21 08:00] VITALS: BP 132/68
--- NOTE | 2019-01-21 08:23 | NUR ---
NURSE NOTES: Pt has declined gi procedure. He states that he rather do it in the other hospital. Dr. Azael allen.
[2019-01-21] MEDS: Thiamine 100mg tab ORAL SCH (08:28)
[2019-01-21] MEDS: Heparin 5000 units/ml inj SUBQ SCH (08:29)
--- NOTE | 2019-01-21 09:12 | Nephrology Progress Note ---
Assessment/Plan Assessment/Plan: 1. Nausea and vomiting secondary to heavy alcohol consumption/gastritis. - EGD once trasnferred to [facility] 2. CLL. The patient to follow up with his oncologist in [facility] post discharge. 3. Dehydration- resolved 4. Alcohol withdrawl- on prn ativan and scheduled Librium Pending transfer to [facility] in [facility] Subjective Date patient seen: Jan 21, 2019 Time patient seen: 09:11 ROS Limited/Unobtainable: Yes Allergies: Coded Allergies: No Known Allergies (Unverified , 01/18/19) Subjective Patint sleeping awaiting DC to [facility] Objective Last 24 Hour Vital Signs Date Time Temp Pulse Resp B/P (MAP) Pulse Ox O2 Delivery O2 Flow Rate FiO2 01/21/19 04:00 97.0 62 18 127/58 (81) 98 01/21/19 04:00 71 01/21/19 00:00 73 01/21/19 00:00 97.7 73 18 149/91 (110) 99 01/21/19 00:00 73 01/20/19 21:00 Room Air 01/20/19 20:00 97.9 76 18 132/60 (84) 98 01/20/19 20:00 83 01/20/19 20:00 83 01/20/19 16:00 71 01/20/19 16:00 98.8 76 20 130/60 (83) 95 01/20/19 12:00 98.4 64 20 132/76 (94) 95 01/20/19 12:00 70 Intake and Output 01/20/19 01/21/19 19:00 07:00 Intake Total 240 ml Balance 240 ml Intake Oral 240 ml # Voids 2 Height (Feet): 5 Height (Inches): 10.00 Weight (Pounds): 195 General Appearance: no apparent distress EENT: normal ENT inspection Neck: normal alignment, supple Cardiovascular: normal rate, regular rhythm Respiratory/Chest: lungs clear, normal breath sounds Abdomen: non tender, soft Edema: no edema noted Arm (L), no edema noted Arm (R), no edema noted Leg (L), no edema noted Leg (R), no edema noted Pedal (L), no edema noted Pedal (R), no edema noted Generalized Ozzy Gillis MD Jan 21, 2019 09:12
--- NOTE | 2019-01-21 09:24 | NUR ---
DISCHARGE PLANNING RECEIVED CALL FROM [facility] PATIENT HAS BEEN ACCEPTED TO [facility] [address] [facility] [address] [address] T: [phone] FOR NURSE TO NURSE REPORT HEALTH PLAN HAS ARRANGED ACL[facility] TRANSPORT WITH JAMES T: [phone] TRIP #[id number] HAS BEEN PLACED ON WILL CALL *SON CALLED STATING HE IS ON HIS WAY AND REQUESTED WE WAIT UNTIL HE ARRIVES BEFORE WE TRANSPORT HIS FATHER Addendum: 01/21/19 at 1301 by LAURYN QUACH LVN LVN SPOKE WITH SONHENRRY, AT BEDSIDE ENCOURAGED SON TO ALLOW PATIENT TO TRANSFER VIA AMBULANCE BUT BOTH PATIENT AND HIS SON DECLINED AND SAID THEY WERE WILLING TO TAKE THE RISK IN TRANSFERRING HIS FATHER TO [facility] VIA CAR NURSING HAD PATIENT SIGN AMA FORM
--- NOTE | 2019-01-21 09:58 | NUR ---
*-* INSURANCE *-* ALL AVAILABLE CLINICALS HAVE BEEN FAXED TO: THERESA POZO: LOBITO GAXIOLA P; [phone] F: [phone] REF# [id number] & [facility] - responsible for auth Ref#[id number] No Senior Technical Trainer assigned yet
--- NOTE | 2019-01-21 10:06 | NUR ---
NURSE NOTES: called [facility] at [phone]. Gave report to Adelina. She will call back if she has any further questions.
--- NOTE | 2019-01-21 11:39 | Consultation ---
History of Present Illness General Chief Complaint: Nausea, Vomiting, and Diarrhea Reason for Consultation: N/V Present Illness HPI Mr. Bravo is a 73 yo male with CLL and EtOH abuse who presented to the ED on 01/18/19 with N/V/D. The patient reports that he has not been vomiting today but that he had been having 3 days of N/V/D on admit. He says that the vomit had some read streaks in it. He denies abdominal pain and is tolerating PO. He is an active alcoholic and has been depressed and drinking heavely for the last 6months. He denies fever, chills, SOB and dysuria. He says that his health and specially his stamina has been decreasing over the last few months. Of note he has a upper lip lesion. Scabbed over has been recurrent intermittently for about 6 months. ID was consulted for vomiting and diarrhea PMHx/PSHx CLL Alcohol abuse SocHx No T/D FamHx Not Contributory Allergies: Coded Allergies: No Known Allergies (Unverified , 01/18/19) Patient History Healthcare decision maker Resuscitation status Full Code Advanced Directive on File Review of Systems ROS Narrative 12 point ROS negative except as noted in the HPI Physical Exam Last 24 Hour Vital Signs Date Time Temp Pulse Resp B/P (MAP) Pulse Ox O2 Delivery O2 Flow Rate FiO2 01/21/19 09:00 Room Air 01/21/19 08:00 96.8 69 20 132/68 (89) 98 01/21/19 04:00 97.0 62 18 127/58 (81) 98 01/21/19 04:00 71 01/21/19 00:00 73 01/21/19 00:00 97.7 73 18 149/91 (110) 99 01/21/19 00:00 73 01/20/19 21:00 Room Air 01/20/19 20:00 97.9 76 18 132/60 (84) 98 01/20/19 20:00 83 01/20/19 20:00 83 01/20/19 16:00 71 01/20/19 16:00 98.8 76 20 130/60 (83) 95 01/20/19 12:00 98.4 64 20 132/76 (94) 95 01/20/19 12:00 70 Intake and Output 01/20/19 01/21/19 19:00 07:00 Intake Total 240 ml 120 ml Balance 240 ml 120 ml Intake Oral 240 ml 120 ml # Voids 2 Height (Feet): 5 Height (Inches): 10.00 Weight (Pounds): 195 Medications Current Medications Medications (Trade) Dose Ordered Sig/Petra Route PRN Reason Start Time Stop Time Status Last Admin Dose Admin Acetaminophen (Tylenol) 650 mg Q4H PRN ORAL Mild Pain (Pain Scale 1-3) 01/19/19 02:15 02/18/19 02:14 Chlordiazepoxide (Librium) 25 mg Q8HR ORAL 01/20/19 14:00 01/27/19 13:59 01/21/19 06:07 Dextrose (Dextrose 50%) 25 ml Q30M PRN IV Hypoglycemia 01/19/19 02:15 02/18/19 02:14 Dextrose (Dextrose 50%) 50 ml Q30M PRN IV Hypoglycemia 01/19/19 02:15 02/18/19 02:14 Dextrose/Sodium Chloride 1,000 ml @ 75 mls/hr [id number] IV 01/20/19 13:30 02/19/19 13:29 01/21/19 03:36 Folic Acid (Folate) 1 mg DAILY ORAL 01/19/19 09:00 02/18/19 08:59 01/21/19 08:28 Heparin Sodium (Porcine) (Heparin 5000 units/ml) 5,000 units EVERY 12 HOURS SUBQ 01/19/19 09:00 02/18/19 08:59 01/21/19 08:29 Lorazepam (Ativan 2mg/ml 1ml) 1 mg Q4H PRN IV For Anxiety 01/20/19 13:45 01/27/19 13:44 Morphine Sulfate (Morphine Sulfate) 1 mg Q4H PRN IVP For pain (4-10) 01/19/19 02:15 01/26/19 02:14 Ondansetron HCl (Zofran) 4 mg Q6H PRN IVP Nausea & Vomiting 01/19/19 02:15 02/18/19 02:14 Pantoprazole (Protonix) 40 mg ACBREAKFAST ORAL 01/20/19 06:30 02/19/19 06:29 01/21/19 06:07 Thiamine HCl (Vitamin B1) 100 mg DAILY ORAL 01/19/19 09:00 02/18/19 08:59 01/21/19 08:28 Zolpidem Tartrate (Ambien) 5 mg HSPRN PRN ORAL Insomnia 01/19/19 03:15 01/26/19 03:14 01/19/19 21:20 Objective Narrative Gen: NAD HEENT: NCAT, MMM, EOMI, PERRL, Upper lip lesion(scabbed over, no surrounding erythema) no scleral icterus NECK: full range of motion, supple, no meningismus, No LAD, No JVD LUNGS: CTAB, No W/C, No Accessory muscle use CARDS: RRR, S1, S2, No M/R/G, ABD: Soft, NT, ND, No R/G, + BS, No HSM, No Masses : Deferred Ext: C/C/E, Pulses 2+ B/L (DP, Rad): NEURO: A/O x 4, Strength and Sensation Grossly intact PSYCH: Normal mood and affect SKIN: Warm/dry, No rashes Assessment/Plan Assessment/Plan: 73 yo male with CLL and EtOH abuse who presented to the ED on 01/18/19 with N/V/ D. Reactive leukcoytosis Most likely due to CLL and not sepsis Aferbile N/V/D Likely due to viral gastritis vs etoh gastritis vs less likely GIB Lip lesion Chronic - Unclear etiology Unlikely to be herpes, Aphthous ulcer? CLL Alcohol abuse PLAN: - Monitor off abx - Monitor CBC and Temps - Transferring to [facility] today Thank you for this consult. We will continue to follow the patient during this hospitalization. Ernesto Ochoa MD Jan 21, 2019 11:39
[2019-01-21 12:00] VITALS: BP 126/76
--- NOTE | 2019-01-21 12:31 | NUR ---
NURSE NOTES: Patient and family declined the ambulance transportation. AMA form signed. PT and family verbalized understanding. Heart monitor removed and returned to [place]. IV removed.
--- NOTE | 2019-01-21 20:12 | General Progress Note ---
Assessment/Plan Assessment/Plan: Assessment - N/V - Upper GI Bleed - CLL Recommendations - monitor labs - change anticoagulation - EGD in am at outside facility Subjective Allergies: Coded Allergies: No Known Allergies (Unverified , 01/18/19) Subjective Feels well no further vomiting refused EGD since being transferred Objective Last 24 Hour Vital Signs Date Time Temp Pulse Resp B/P (MAP) Pulse Ox O2 Delivery O2 Flow Rate FiO2 01/21/19 12:00 98.5 77 18 126/76 (93) 98 01/21/19 09:00 Room Air 01/21/19 08:00 66 01/21/19 08:00 96.8 69 20 132/68 (89) 98 01/21/19 04:00 97.0 62 18 127/58 (81) 98 01/21/19 04:00 71 01/21/19 00:00 73 01/21/19 00:00 97.7 73 18 149/91 (110) 99 01/21/19 00:00 73 01/20/19 21:00 Room Air Intake and Output 01/20/19 01/21/19 19:00 07:00 Intake Total 240 ml 120 ml Balance 240 ml 120 ml Intake Oral 240 ml 120 ml # Voids 2 Height (Feet): 5 Height (Inches): 10.00 Weight (Pounds): 195 Objective WDWN NCAT supple CTA RRR abd soft no edema Scott Addison MD Jan 21, 2019 20:12
--- NOTE | 2019-01-22 14:46 | NUR ---
*-* INSURANCE *-* UPDATED CLINICALS SHOWING PATIENT LEFT [facility] NCM: LOBITO GAXIOLA P; [phone] F: [phone]
--- NOTE | 2019-01-22 15:10 | Discharge Summary ---
Discharge Summary Discharge Summary _ Patient has some DATE OF ADMISSION: 01/19/2019 DATE OF DISCHARGE: 191801/21/2019 Patient left AGAINST MEDICAL ADVICE REASON FOR ADMISSION: [] 73 years old male with past medical history of chronic lymphocytic leukemia alcohol dependency admitted for evaluation due to nausea and vomiting. He denied diarrhea he denied chest pain patient had a slight amount of abdominal discomfort. Patient also reports heaviness in his legs for 2 days when he was trying to move around. He reported being weak he drinks alcohol on a daily basis for many years he progressively deteriorated over the last 2 months. No melena no hematochezia. Patient has a lesion of the upper lip which was not been evaluated and been there for months. 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 Upon evaluation vital signs are stable. Laboratory work-up revealed no evidence of urinalysis revealed +1 protein +1 ketones no +1 blood no evidence of UTI. Urine toxicology screen was negative. WBC 169.2. Hemoglobin 11.6 hematocrit 33.9. Platelet count 188. Stable electrolytes. BUN 19, creatinine 1.3. Stable LFT. Troponin negative. Serum alcohol less than 3 serum salicylate and Tylenol negative. EKG reveals sinus rhythm no acute ischemic changes. Chest x-ray revealed no acute cardiopulmonary pathology. Abdominal x- ray demonstrated mild distention of small bowel and probably large bowel distention as well. Patient started on the IV hydration received thiamine Pepcid and Zofran and admitted to telemetry floor for further management. CONSULTANTS: holistic health practitioner neurologist pulmonary ID specialist Dr. Ochoa GI specialist dr. Angel trapper animal head butler/oncologist surgery psychiatrist HOSPITAL COURSE: [] Patient admitted to telemetry floor. Patient was continued on IV hydration. Banana bag. Librium was on board as needed along with Ativan. Thiamine and folate provided. Supportive care with banana bag. Supportive care provided. Patient was counseled alcohol abstinence. Patient follows up with oncologist at [facility] to be continued upon discharge. DVT and GI prophylaxis provided. GI consult was requested. Supportive care provided. Antiemetic provided as needed. Hemoglobin hematocrit for closely monitor with goal to keep hemoglobin above 7 for 1 day hemoglobin from 11.6 down to 9.4 hematocrit from 33.9 down to 28. Proton pump inhibitor provided. GI specialist recommended endoscopy as outpatient facility. Pain management was addressed. ID specialist and evaluated patient. Patient leukocytosis was reactive most likely due to chronic lymphocytic leukemia patient remained afebrile no evidence of infection. Nausea vomiting diarrhea was most likely due to viral gastroenteritis versus EtOH gastritis in the next cyclical GI bleeding. Lip lesion chronic unlikely to be her past unclear etiology recommended work-up as outpatient. ID specialist recommended to patient off antibiotics. Patient required transfer to [facility] per insurance EGD was recommended +1 transferred to [facility]. Patient decided patient and family decided to sign AGAINST MEDICAL ADVICE. My AMA. The risks and consequences of signing AGAINST MEDICAL ADVICE were discussed with patient in detail. Patient verbalized understanding, nevertheless signed AMA form and left. FINAL DIAGNOSES: 1. [] Alcohol abuse with withdrawal Chronic lymphocytic leukemia Leukocytosis, reactive most likely due to CLL Nausea vomiting and diarrhea most likely due to viral gastroenteritis versus EtOH gastritis Dehydration Lip lesion chronic with unclear etiology I have been assigned to dictate discharge summary for this account. I was not involved in the patient's management. Althea Crawford NP Jan 22, 2019 15:10
== END 2019-01-21 12:45 | disposition left against medical advice (07) | DRG 894 ==
LOC: EMR 23:55 → 2E 01-19 01:15 → EDBEDREQ 01-19 01:45
DX: F10.239 Alcohol dependence with withdrawal, unspecified (principal); C91.10 Chronic lymphocytic leukemia of B-cell type not having achieved remission; E86.0 Dehydration; A08.4 Viral intestinal infection, unspecified; K29.20 Alcoholic gastritis without bleeding; K13.0 Diseases of lips
CPT/HCPCS: 36415; 71045; 74018; 80048; 80053; 80307; 80329; 81003; 82248; 82550; 83690; 83735; 84100; 84484; 85007; 85025; 85610; 85730; 87045; 87324; 93005; 96361; 96365; 96375; 99285; J2405

== ENCOUNTER 2019-03-22 07:27 | Emergency (ER) | payer MEDICARE ==
[~2019-03-22] VITALS: Ht 177.8 cm; Wt 81.6 kg
[2019-03-22 07:42] VITALS: BP 111/60
[2019-03-22] MEDS ORDERED: Dicyclomine HCl 10mg/5ml oral soln ORAL ONE (07:45)
[2019-03-22] MEDS ORDERED: Lidocaine 2% Visc 15ml soln ORAL ONE (07:45)
[2019-03-22] MEDS ORDERED: Mylanta II UD 30ml ORAL ONE (07:45)
[2019-03-22 08:13] LABS: AMMONIA < 10 umol/L (11-32)
[2019-03-22 08:21] LABS: ALANINE AMINOTRANSFERASE 19 U/L (12-78); ALBUMIN 4.1 G/DL (3.4-5.0); ALBUMIN/GLOBULIN RATIO 1.5 (1.0-2.7); ALKALINE PHOSPHATASE 112 U/L (46-116); ANION GAP 12 mmol/L (5-15); ASPARTATE AMINO TRANSFERASE 59 U/L (15-37); BILIRUBIN,TOTAL 10.1 MG/DL (0.2-1.0); BLOOD UREA NITROGEN 32 mg/dL (7-18); CALCIUM 8.8 MG/DL (8.5-10.1); CARBON DIOXIDE 25 MMOL/L (21-32); CHLORIDE 102 MMOL/L (98-107); CREATININE 1.1 MG/DL (0.55-1.30); POTASSIUM 4.3 MMOL/L (3.5-5.1); SODIUM 138 MMOL/L (136-145)
--- NOTE | 2019-03-22 08:24 | Emergency Room Report ---
History of Present Illness General Chief Complaint: Abdominal Pain Source: Patient Present Illness HPI 73-year-old male presents ED for evaluation. Complaining of abdominal pain with nausea and vomiting. Started 2 days ago. States he is been drinking alcohol. Pain is periumbilical, dull, 7 out of 10, nonradiating. Denies chest pain or shortness of breath. Denies fevers or chills. Denies diarrhea. States he was seen here in January for similar presentation and subsequently admitted. No other aggravating relieving factors. Denies any other associated symptoms Allergies: Coded Allergies: No Known Allergies (Unverified , 01/18/19) Patient History Past Medical History: none Past Surgical History: none Pertinent Family History: none Social History: Reports: alcohol use; Denies: smoking, drug use Immunizations: UTD Reviewed Nursing Documentation: PMH: Agreed; PSxH: Agreed Nursing Documentation-PMH Past Medical History: No History, Except For Review of Systems All Other Systems: negative except mentioned in HPI Physical Exam Vital Signs Date Time Temp Pulse Resp B/P (MAP) Pulse Ox O2 Delivery O2 Flow Rate FiO2 03/22/19 07:30 98.4 104 15 113/69 (84) 98 Room Air Sp02 EP Interpretation: reviewed, normal General Appearance: no apparent distress, alert, GCS 15, non-toxic Head: normocephalic, atraumatic Eyes: bilateral eye normal inspection, bilateral eye PERRL ENT: hearing grossly normal, normal pharynx, no angioedema, normal voice Neck: full range of motion, supple/symm/no masses Respiratory: chest non-tender, lungs clear, normal breath sounds, speaking full sentences Cardiovascular #1: regular rate, rhythm, no edema Cardiovascular #2: 2+ carotid (R), 2+ carotid (L), 2+ radial (R), 2+ radial (L) , 2+ dorsalis pedis (R), 2+ dorsalis pedis (L) Gastrointestinal: normal bowel sounds, non tender, soft, non-distended, no guarding, no rebound Rectal: deferred Genitourinary: normal inspection, no CVA tenderness Musculoskeletal: back normal, gait/station normal, normal range of motion, non- tender Neurologic: alert, oriented x3, responsive, motor strength/tone normal, sensory intact, speech normal Psychiatric: judgement/insight normal, memory normal, mood/affect normal, no suicidal/homicidal ideation Reflexes: 3+ bicep (R), 3+ bicep (L), 3+ tricep (R), 3+ tricep (L), 3+ knee (R) , 3+ knee (L) Skin: other - jaundiced Lymphatic: no adenopathy Medical Decision Making Diagnostic Impression: Primary Impression: Gastritis Qualified Codes: K29.20 - Alcoholic gastritis without bleeding Additional Impressions: Alcohol dependence Qualified Codes: F10.29 - Alcohol dependence with unspecified alcohol-induced disorder CLL (chronic lymphocytic leukemia) Anemia Qualified Codes: D64.9 - Anemia, unspecified ER Course Hospital Course 73-year-old male presents ED with abdominal pain. History of alcohol use. Differential diagnoses include: gastritis, pancreatitis, gastroenteritis Clinical course Patient placed on stretcher. After initial history and physical I ordered labs , ivfs, meds Labs- marked leukocytosis, hb 4.2, hct 11.6, mild LFT elevation, coags ok patient denies any coffee-ground emesis any dark stools. Patient does have history of CLL. Had significant leukocytosis on recent hospitalization. patient has stable vitals. Not complaining of any dizziness or weakness. because of insurance patient will be transferred. Admitting physician is requesting hematological work-up prior to any transfusion Diagnosis - gastritis, alcohol dependence, CLL, anemia transferred in serious condition Labs Test 03/22/19 07:35 03/22/19 08:20 Sodium Level 138 MMOL/L (136-145) Potassium Level 4.3 MMOL/L (3.5-5.1) Chloride Level 102 MMOL/L (98-107) Carbon Dioxide Level 25 MMOL/L (21-32) Anion Gap 12 mmol/L (5-15) Blood Urea Nitrogen 32 mg/dL (7-18) Creatinine 1.1 MG/DL (0.55-1.30) Estimat Glomerular Filtration Rate mL/min (>60) Glucose Level 170 MG/DL (74-106) Calcium Level 8.8 MG/DL (8.5-10.1) Total Bilirubin 10.1 MG/DL (0.2-1.0) Direct Bilirubin 1.3 MG/DL (0.0-0.3) Aspartate Amino Transf (AST/SGOT) 59 U/L (15-37) Alanine Aminotransferase (ALT/SGPT) 19 U/L (12-78) Alkaline Phosphatase 112 U/L (46-116) Ammonia < 10 umol/L (11-32) Total Protein 6.8 G/DL (6.4-8.2) Albumin 4.1 G/DL (3.4-5.0) Globulin 2.7 g/dL Albumin/Globulin Ratio 1.5 (1.0-2.7) Lipase 62 U/L (73-393) Serum Alcohol < 3 mg/dL White Blood Count 198.8 K/UL (4.8-10.8) Red Blood Count 1.20 M/UL (4.70-6.10) Hemoglobin 4.2 G/DL (14.2-18.0) Hematocrit 11.6 % (42.0-52.0) Mean Corpuscular Volume 97 FL (80-99) Mean Corpuscular Hemoglobin 34.9 PG (27.0-31.0) Mean Corpuscular Hemoglobin Concent 36.2 G/DL (32.0-36.0) Red Cell Distribution Width 21.6 % (11.6-14.8) Platelet Count 158 K/UL (150-450) Mean Platelet Volume 6.3 FL (6.5-10.1) Neutrophils (%) (Auto) % (45.0-75.0) Lymphocytes (%) (Auto) % (20.0-45.0) Monocytes (%) (Auto) % (1.0-10.0) Eosinophils (%) (Auto) % (0.0-3.0) Basophils (%) (Auto) % (0.0-2.0) Prothrombin Time 10.9 SEC (9.30-11.50) Prothromb Time International Ratio 1.0 (0.9-1.1) Activated Partial Thromboplast Time 27 SEC (23-33) Last Vital Signs Date Time Temp Pulse Resp B/P (MAP) Pulse Ox O2 Delivery O2 Flow Rate FiO2 03/22/19 07:45 86 17 Room Air 03/22/19 07:42 98.4 111/60 100 Status: improved Disposition: XFER SHT-TRM HOSP Condition: Serious Referrals: [facility],REFERRING (PCP) Wolfgang Ponce MD Mar 22, 2019 08:24
[2019-03-22 08:37] LABS: BILIRUBIN,DIRECT 1.3 MG/DL (0.0-0.3)
[2019-03-22 08:38] LABS: HEMATOCRIT 11.6 % (42.0-52.0); MEAN CORPUSCULAR VOLUME 97 FL (80-99); PLATELET COUNT 158 K/UL (150-450); RED CELL DISTRIBUTION WIDTH 21.6 % (11.6-14.8)
[2019-03-22 08:40] LABS: HEMOGLOBIN 4.2 G/DL (14.2-18.0); WHITE BLOOD COUNT 198.8 K/UL (4.8-10.8)
[2019-03-22 09:41] VITALS: BP 112/47
[2019-03-22 10:49] VITALS: BP 108/47
[2019-03-22 11:11] VITALS: BP 108/47
== END 2019-03-22 11:12 | disposition short-term general hospital (02) ==
LOC: EMR 07:45
DX: K29.20 Alcoholic gastritis without bleeding (principal); F10.29 Alcohol dependence with unspecified alcohol-induced disorder; D64.9 Anemia, unspecified; C91.10 Chronic lymphocytic leukemia of B-cell type not having achieved remission; D72.829 Elevated white blood cell count, unspecified
CPT/HCPCS: 36415; 80053; 82140; 82248; 83690; 85007; 85025; 85610; 85730; 86850; 86870; 86900; 86901; 96361; 96374; 96375; 99285; G0480; J2405; S0028; J7030